=== PATIENT | male | born 1955 | race African-American/Black ===

== ENCOUNTER 2017-06-10 22:49 | Inpatient (IN) | payer MEDICARE, OTHER ==
[~2017-06-10] VITALS: Ht 177.8 cm; Wt 85.5 kg
--- NOTE | 2017-06-10 22:58 | NUR ---
Patient brought in by rescue, found crawling on the street, reports was kicked out of a board and care facility, had stroke 2 months ago, c/o worsening left sided weakness and headache.
--- NOTE | 2017-06-10 22:59 | NUR ---
Dr. Villela at bedside for MSE.
[2017-06-10] MEDS ORDERED: IV NORMAL SALINE 500 ML BAG IV ONE (23:00)
--- NOTE | 2017-06-10 23:02 | NUR ---
Patient out of ER for CT.
[2017-06-10] MEDS ORDERED: [UNRECOGNIZED DRUG - REMARK] (23:05)
[2017-06-10] MEDS ORDERED: [UNRECOGNIZED DRUG - REMARK] (23:05)
--- NOTE | 2017-06-10 23:18 | NUR ---
Patient back to ER from CT.
--- NOTE | 2017-06-10 23:35 | NUR ---
CALLED [facility] TELE STROKE. DR HERNANDEZ WILL CALL BACK
--- NOTE | 2017-06-10 23:40 | NUR ---
DR PADRON SPEAKING WITH DR NORRIS FROM [facility]
[2017-06-10 23:46] LABS: BASOPHILS # (AUTO) 0.1 K/uL (0.0-8.0); BASOPHILS % (AUTO) 0.5 % (0.0-2.0); EOSINOPHILS # (AUTO) 0.1 K/uL (0.0-0.7); EOSINOPHILS % (AUTO) 1.2 % (0.0-7.0); HEMATOCRIT 48.2 % (36.7-47.1); HEMOGLOBIN 15.3 g/dL (12.5-16.3); LYMPHOCYTES % (AUTO) 8.4 % (20.5-51.5); MEAN CORPUSCULAR HEMOGLOBIN 24.1 uug (23.8-33.4); MEAN CORPUSCULAR HGB CONC 32 g/dL (32.5-36.3); MEAN CORPUSCULAR VOLUME 75.7 fL (73.0-96.2); MONOCYTES # (AUTO) 0.7 K/uL (2.0-10.0); NEUTROPHILS # (AUTO) 9.9 K/uL (1.8-8.9); NEUTROPHILS % (AUTO) 83.9 % (38.5-71.5); PLATELET COUNT (AUTO) 246 K/uL (152-348); RED BLOOD CELL COUNT(AUTO) 6.36 MIL/uL (4.06-5.63); WHITE BLOOD COUNT (AUTO) 11.8 K/uL (3.6-10.2)
[2017-06-11] VITALS (7 sets, daily range): BP systolic 142–168; BP diastolic 85–104
[2017-06-11 00:11] LABS: ALANINE AMINOTRANSFERASE 80 U/L (16-63); ALKALINE PHOSPHATASE 89 U/L (50-136); ASPARTATE AMINOTRANSFERASE 64 U/L (15-37); BILIRUBIN,DIRECT 0.2 mg/dL (0.0-0.2); CARBON DIOXIDE 26 mmol/L (21-32); CHLORIDE 102 mmol/L (98-107); CREATININE 1.7 mg/dL (0.6-1.3); GLUCOSE 90 mg/dL (74-106); LIPASE 276 U/L (73-393); POTASSIUM 3.1 mmol/L (3.5-5.1); TOTAL PROTEIN, SERUM 9.6 g/dL (6.4-8.2); UREA NITROGEN, BLOOD 18 mg/dL (7-18)
[2017-06-11 00:18] LABS: ACETAMINOPHEN < 2.0 ug/mL (10-30)
[2017-06-11] MEDS ORDERED: FUROSEMIDE 20 MG/2 ML VIAL IV ONE ×2 (00:30→20:30)
[2017-06-11 00:31] LABS: ETHANOL < 3 MG/DL (0-0)
[2017-06-11] MEDS ORDERED: FUROSEMIDE 40 MG/4 ML VIAL ONE (00:31)
--- NOTE | 2017-06-11 01:16 | NUR ---
Passed report to Bonita RODRIGUEZ Tele.
--- NOTE | 2017-06-11 01:30 | NUR ---
ADMITTED PATIENT IN TELE UNIT UNDER THE CARE OF YARA TAYLOR NP, INVENTORY LIST DONE.
[2017-06-11] MEDS ORDERED: DEXTROSE 50% 50 ML DISP.SYRIN IV PRN ×3 (02:45→04:45)
[2017-06-11] MEDS ORDERED: INSULIN REGULAR, HUMAN 300 UNIT/3 ML VIAL SQ PRN ×3 (02:45→04:45)
[2017-06-11] MEDS ORDERED: BLOOD SUGAR DIAGNOSTIC 1 EACH STRIP VI SCH ×4 (06:00→07:30)
[2017-06-11] MEDS: BLOOD SUGAR DIAGNOSTIC 1 EACH STRIP VI SCH ×4 (06:03→20:51)
--- NOTE | 2017-06-11 06:16 | NUR ---
PATIENT SLEPT MOST OF THE NIGHT NO SOB NO CHEST PAIN, RYTHM AFIB ON 80 BUT NOT SUSTAINABLE, NO COMPLAIN OF PAIN, TURN AND REPOSITION EVERY TWO HOURS, V/S STABLE. CONT TO MONITOR.
[2017-06-11 06:22] LABS: BASOPHILS % (AUTO) 0.4 % (0.0-2.0); EOSINOPHILS # (AUTO) 0.2 K/uL (0.0-0.7); HEMATOCRIT 43.9 % (36.7-47.1); HEMOGLOBIN 14.1 g/dL (12.5-16.3); LYMPHOCYTES # (AUTO) 1.2 K/uL (20.0-40.0); LYMPHOCYTES % (AUTO) 12.2 % (20.5-51.5); MEAN CORPUSCULAR HEMOGLOBIN 24.1 uug (23.8-33.4); MEAN CORPUSCULAR HGB CONC 32 g/dL (32.5-36.3); MEAN CORPUSCULAR VOLUME 75.1 fL (73.0-96.2); MONOCYTES % (AUTO) 10.2 % (0.0-11.0); NEUTROPHILS # (AUTO) 7.3 K/uL (1.8-8.9); NEUTROPHILS % (AUTO) 75.2 % (38.5-71.5); PLATELET COUNT (AUTO) 209 K/uL (152-348); RED BLOOD CELL COUNT(AUTO) 5.85 MIL/uL (4.06-5.63); WHITE BLOOD COUNT (AUTO) 9.8 K/uL (3.6-10.2)
[2017-06-11 06:39] LABS: CREATININE 1.5 mg/dL (0.6-1.3); POTASSIUM 3.2 mmol/L (3.5-5.1)
[2017-06-11 06:49] LABS: BILIRUBIN,TOTAL 0.9 mg/dL (0.2-1.0); TOTAL PROTEIN, SERUM 7.4 g/dL (6.4-8.2)
[2017-06-11 06:51] LABS: THYROID STIMULATING HORMONE 0.249 mIU/mL (0.358-3.740)
--- NOTE | 2017-06-11 07:30 | NUR ---
RECEIVED SHIFT REPORT FROM COMPUTER OPERATIONS SPECIALIST NURSE. PATIENT A/OX4, PRESENTS WITH LEFT SIDED-WEAKNESS AND DIAGNOSIS OF STROKE. STABLE CONDITION AT THIS TIME, NO S/S OF DISTRESS. STROKE ASSESSMENT, STROKE PACKET WILL BE COMPLETED THROUGHOUT SHIFT. WILL MONITOR CLOSELY. PATIENT'S TROPONIN LEVEL SLIGHTLY ELEVATED FROM FIRST TROPONIN LEVEL WHICH WAS TAKEN DURING ADMISSION. BNP ALSO HIGHLY ELEVATED. WILL REMIND MD OF THESE RESULTS. NON-AMBULATORY AT THIS TIME, BED ALARM ON, CALL LIGHT WITHIN REACH OF PATIENT.
--- NOTE | 2017-06-11 08:00 | NUR ---
PATIENT WENT FROM BED TO CHAIR SAFELY TO HAVE BREAKFAST. HEART ELEVATED 108 ON TELE MONITOR. BLOOD PRESSURE SLIGHTLY ELEVATED AT 142/91, TEMPERATURE 98.3, O2 SATURATION 100%. WILL CONTINUE TO MONITOR.
--- NOTE | 2017-06-11 09:30 | NUR ---
PERSONAL BELONGINGS RECHECKED - PATIENT HAS $81 PETERSON, MARIJUANA ALSO FOUND IN PATIENT'S CLOTHES. MARIJUANA PLACED IN CONTRABAND LOCKER #4. PATIENT'S PETERSON AND MARIJUANA ADDED INTO BELONGINGS CHECKLIST FORM.
[2017-06-11] MEDS ORDERED: ATOR10TA PO (09:45)
[2017-06-11] MEDS ORDERED: LISI-603 PO (09:45)
--- NOTE | 2017-06-11 09:48 | NUR ---
MD ORDERED URINE DRUG SCREEN. UA ALSO NEEDS TO BE SENT, WAITING FOR URINE.
--- NOTE | 2017-06-11 09:52 | NUR ---
NOTES READ AND SAYS TO HOLD ASPIRIN FOR NOW.
--- NOTE | 2017-06-11 11:32 | NUR ---
WOUND CARE CONSULT: PT PRESENTS WITH LEFT LATERAL LOWER LEG DRY ESCHAR AND LEFT LATERAL HIP DEEP TISSUE INJURY WITH AREAS OF DRY ESCHAR, DRY ESCHAR TO LEFT ARM, DRY ABRASIONS TO ELBOWS AND ANTERIOR LOWER LEG, PRESENT ON ADMISSION. PT AMBULATORY WITH WALKER AND ASSISTANCE. LEFT SIDED WEAKNESS NOTED. ALL WOUND AND SKIN PROTECTION RECOMMENDATIONS DISCUSSED WITH NURSING STAFF. CURRENT FLACO SCORE IS 16. WILL SEE PRN. FORTUNE IN AGREEMENT WITH PLAN OF CARE. Addendum: 06/11/17 at 1135 by NAVIN KEVIN RN Amended: Links added.
--- NOTE | 2017-06-11 12:03 | NUR ---
PATIENT HAS BEEN RESTING COMFORTABLY IN BED SINCE BREAKFAST. NO NEUROLOGICAL CHANGES NOTED. FACIAL REPRESENTATION DOES PRESENT SLIGHT WEAKNESS ON LEFT CHEEK/MOUTH AREA, WHICH HAS BEEN PRESENT SINCE ADMISSION AND IS PATIENT'S BASELINE, BASED ON ASSESSMENT AND QUESTIONING PATIENT. TEMPERATURE SLIGHTLY ELEVATED AT 100.1, COOLING MEASURES PROVIDED, WILL RECHECK TEMPERATURE AND MONITOR. BLOOD SUGAR 84, NO INSULIN COVERAGE REQUIRED. STABLE CONDITION AT THIS TIME, NO S/S OF DISTRESS.
[2017-06-11] MEDS ORDERED: POTASSIUM CHLORIDE 20 MEQ TAB.PRT.SR PO ONE (13:15)
[2017-06-11] MEDS ORDERED: AMLODIPINE 5 MG TABLET PO SCH (13:15)
[2017-06-11] MEDS ORDERED: POTASSIUM CHLORIDE 10 MEQ TAB.PRT.SR PO ONE (13:15)
[2017-06-11] MEDS ORDERED: hydrALAZINE HCL 25 MG TABLET PO PRN (13:30)
[2017-06-11 14:27] LABS: *BILIRUBIN,URIN 1+ (NEGATIVE); *BLOOD, URINE Trace-intact (NEGATIVE); *CLARITY,URINE CLOUDY (CLEAR); *COLOR,URINE YELLOW (YELLOW); *KETONES,URINE NEGATIVE (NEGATIVE); *PROTEIN,URINE 2+ (NEGATIVE); LEUKOCYTE ESTERASE ,URINE 1+ (NEGATIVE); NITRITE, URINE NEGATIVE (NEGATIVE); PH,URINE 7.5 (5.0-8.0); UGLUCOSE NEGATIVE (NEGATIVE)
[2017-06-11 14:42] LABS: BACTERIA,URINE MANY /HPF (NONE SEEN); RBC,URINE 0-3 /HPF (0-3); SQUAMOUS EPITHELIAL CELL,UR FEW /HPF (NONE SEEN); WBC,URINE TNTC /HPF (0-3)
[2017-06-11 14:43] LABS: TRIPLE PHOSPHATE CRYSTAL,UR MANY /HPF (NONE SEEN)
[2017-06-11 14:49] LABS: *AMPHETAMINE, URINE NEGATIVE (NEGATIVE); *BARBITURATE, URINE NEGATIVE (NEGATIVE); *CANNABINOID, URINE POSITIVE (NEGATIVE); *COCCAINE, URINE POSITIVE (NEGATIVE); *OPIATE, URINE NEGATIVE (NEGATIVE); *PHENCYCLIDINE SCREEN,URINE NEGATIVE (NEGATIVE)
--- NOTE | 2017-06-11 15:12 | NUR ---
PATIENT GOING FOR MRI BRAIN W/OUT CONTRAST AT [facility]. AMBULANCE WILL BE TRANSPORTING PATIENT. BLOOD PRESSURE ELEVATED, PRN BLOOD PRESSURE MEDICATION ADMINISTERED.
--- NOTE | 2017-06-11 16:57 | NUR ---
UNABLE TO OBTAIN BLOOD SUGAR BECAUSE PATIENT HAVING MRI BRAIN DONE AT [facility].
--- NOTE | 2017-06-11 17:30 | NUR ---
PATIENT ARRIVED BACK INTO UNIT FROM MRI HEAD W/OUT CONTRAST FROM [facility]. PATIENT IN STABLE CONDITION.
--- NOTE | 2017-06-11 17:45 | NUR ---
VITAL SIGNS TAKEN AFTER ARRIVAL OF PATIENT FROM MRI BRAIN: BLOOD PRESSURE ELEVATED 168/104. TEMPERATURE WNL HEART RATE 104 ON TELE MONITOR NOTIFIED.
[2017-06-11] MEDS: HYDROCODONE/APAP 5-325MG TABLET PO PRN ×2 (17:56→23:46)
[2017-06-11] MEDS: CARVEDILOL 6.25 MG TABLET PO SCH (19:26)
--- NOTE | 2017-06-11 19:26 | NUR ---
COREG 6.25MG ADMINISTERED TO PATIENT FOR ELEVATED BLOOD PRESSURE.
[2017-06-11] MEDS: SIMVASTATIN 40 MG TABLET PO SCH (20:48)
[2017-06-11] MEDS: CEFTRIAXONE 1 G in IV DEXTROSE 5% 50 ML IV SCH (21:04)
[2017-06-12] VITALS: BP 166/111
[2017-06-12] MEDS: hydrALAZINE HCL 25 MG TABLET PO PRN (00:23)
[2017-06-12 01:23] VITALS: BP 149/99
[2017-06-12 04:00] VITALS: BP 141/91
[2017-06-12] MEDS: HYDROCODONE/APAP 5-325MG TABLET PO PRN ×4 (04:42→20:03)
--- NOTE | 2017-06-12 05:31 | NUR ---
Pt slept intermittently last night. Continues to complain of constant low back pain. MD Notified. PRN [place] changed to Q4H. Continuing to monitor BP with PRN Hydralazine administered once at midnight.
[2017-06-12] MEDS: BLOOD SUGAR DIAGNOSTIC 1 EACH STRIP VI SCH ×4 (06:33→20:17)
[2017-06-12 06:51] LABS: BASOPHILS % (AUTO) 0.7 % (0.0-2.0); EOSINOPHILS # (AUTO) 0.1 K/uL (0.0-0.7); EOSINOPHILS % (AUTO) 2.5 % (0.0-7.0); HEMATOCRIT 41.9 % (36.7-47.1); HEMOGLOBIN 13.5 g/dL (12.5-16.3); LYMPHOCYTES # (AUTO) 0.6 K/uL (20.0-40.0); LYMPHOCYTES % (AUTO) 10.8 % (20.5-51.5); MEAN CORPUSCULAR HEMOGLOBIN 24.3 uug (23.8-33.4); MEAN CORPUSCULAR HGB CONC 32 g/dL (32.5-36.3); MEAN CORPUSCULAR VOLUME 75.4 fL (73.0-96.2); MONOCYTES # (AUTO) 0.8 K/uL (2.0-10.0); MONOCYTES % (AUTO) 13.1 % (0.0-11.0); NEUTROPHILS # (AUTO) 4.2 K/uL (1.8-8.9); NEUTROPHILS % (AUTO) 72.9 % (38.5-71.5); PLATELET COUNT (AUTO) 197 K/uL (152-348); RED BLOOD CELL COUNT(AUTO) 5.56 MIL/uL (4.06-5.63); WHITE BLOOD COUNT (AUTO) 5.7 K/uL (3.6-10.2)
[2017-06-12 07:24] LABS: THYROID STIMULATING HORMONE 0.144 mIU/mL (0.358-3.740)
--- NOTE | 2017-06-12 07:24 | NUR ---
RECEIVED SHIFT REPORT FROM PAYROLL SECRETARY NURSE. PATIENT RESTING COMFORTABLY IN BED AT THIS TIME. BLOOD SUGAR CHECKED LAST NIGHT AND NO COVERAGE NEEDED. STABLE CONDITION AT THIS TIME. BLOOD PRESSURE ELEVATED, WILL MONITOR. CONTROLLED AFIB ON TELE MONITOR. STROKE ASSESSMENTS/EVALUATION WILL BE COMPLETED. NO NEUROLOGICAL CHANGES AT THIS TIME. BED ALARM ON, CALL LIGHT WITHIN REACH.
[2017-06-12 07:26] LABS: CREATININE 1.4 mg/dL (0.6-1.3); MAGNESIUM 1.8 mg/dL (1.8-2.4); PHOSPHOROUS 2.9 mg/dL (2.5-4.9); POTASSIUM 3.6 mmol/L (3.5-5.1)
[2017-06-12 08:03] VITALS: BP 124/81
[2017-06-12] MEDS: CARVEDILOL 6.25 MG TABLET PO SCH ×2 (08:07→17:49)
[2017-06-12 11:50] VITALS: BP 121/67
--- NOTE | 2017-06-12 14:52 | NUR ---
PHYSICAL THERAPY SEEN PATIENT. PATIENT VERBALIZES THAT HE FEELS DIZZY AND WEAK. BLOOD PRESSURE 145/73.
[2017-06-12 15:44] VITALS: BP 145/73
--- NOTE | 2017-06-12 18:48 | NUR ---
PATIENT RESTING COMFORTABLY IN BED AT THIS TIME. NO NEUROLOGICAL CHANGES/DEFICITS AT THIS TIME. STROKE EDUCATION PROVIDED. TEACH-BACK. BLOOD SUGAR MANAGEMENT PROVIDED. BLOOD PRESSURE CONTROL PROVIDED. BED ALARM IS ON, CALL LIGHT WITHIN REACH.
[2017-06-12] MEDS ORDERED: MIRALAX 17 GM POWD.PACK PO PRN (19:00)
--- NOTE | 2017-06-12 20:00 | NUR ---
PATIENT ALERT,SPEECH CLEAR,CONTROLLED A FIB ON MONITOR,STROKE REASSESSMENT DONE,NO NEUROLOGICAL CHANGED,STROKE EDUCATION GIVEN,PATIENT VERBALIZED UNDERSTANDING,NORCO 5-325 MG PO GIVEN FOR LEFT KNEE PAIN,EFFECTIVE.
[2017-06-12] MEDS: DOCUSATE SODIUM 100 MG CAPSULE PO SCH (20:02)
[2017-06-12] MEDS: SIMVASTATIN 40 MG TABLET PO SCH (20:03)
[2017-06-12] MEDS: CEFTRIAXONE 1 G in IV DEXTROSE 5% 50 ML IV SCH (20:09)
[2017-06-13] VITALS: BP 158/86
[2017-06-13] MEDS: HYDROCODONE/APAP 5-325MG TABLET PO PRN ×5 (00:06→20:58)
[2017-06-13] MEDS: hydrALAZINE HCL 25 MG TABLET PO PRN ×2 (00:07→08:25)
[2017-06-13 04:50] VITALS: BP 130/72
--- NOTE | 2017-06-13 06:00 | NUR ---
PATIENT NEUROLOGICAL CHECK REMAINS STABLE,NO ACUTE CHANGE ,PATIENT STATED SLEEP WELL THROUGH THE NIGHT, APRESOLINE GIVEN X1 TIMES FOR ELEVATED BP.
[2017-06-13] MEDS: BLOOD SUGAR DIAGNOSTIC 1 EACH STRIP VI SCH (06:25)
--- NOTE | 2017-06-13 07:15 | NUR ---
RECEIVED REPORT FROM 911 TELECOMMUNICATOR NURSE, PATIENT IN BED AWAKE, REPORTING PAIN IN LEG AND BACK. PATIENT NEEDED HELP REPOSITIONING. BED IN LOW POSITION, SIDE RAILS UP X2, BED ALARM ON. INFORMED PATIENT TO CALL BEFORE HE TRIES TO GET UP IN ORDER TO EVALUATE HIS AMBULATING SKILLS.
[2017-06-13] MEDS: CARVEDILOL 6.25 MG TABLET PO SCH ×2 (08:24→17:42)
[2017-06-13 11:40] VITALS: BP 132/63
[2017-06-13 15:40] VITALS: BP 158/95
[2017-06-13] MEDS: CEPHALEXIN MONOHYDRATE 500 MG CAPSULE PO SCH ×2 (16:18→20:30)
[2017-06-13] MEDS ORDERED: CEPH500C2 PO (16:59)
[2017-06-13] MEDS ORDERED: DOCU100C36 PO (16:59)
[2017-06-13] MEDS ORDERED: HYDR-4076 PO (16:59)
[2017-06-13] MEDS ORDERED: CARV6.252 PO (16:59)
[2017-06-13] MEDS ORDERED: MULT1TAB73 PO (16:59)
[2017-06-13] MEDS ORDERED: HYDR-3326 PO (16:59)
[2017-06-13] MEDS ORDERED: POLY17PO4 PO (16:59)
[2017-06-13] MEDS ORDERED: SIMV40TA5 PO (16:59)
[2017-06-13] MEDS ORDERED: LOSARTAN POTASSIUM 25 MG TABLET PO SCH (17:30)
--- NOTE | 2017-06-13 18:49 | NUR ---
PATIENT IS CURRENTLY IN BED AWAKE, NO DISTRESS NOTED AT THIS TIME, BED IN LOW POSITION, SIDE RAILS UP X2. PATIENT HAS BEEN COOPERATIVE WITH CARE, ALL NEEDS MET. PATIENT WILL BE DISCHARGING TO [facility].
[2017-06-13 20:00] VITALS: BP 146/71
--- NOTE | 2017-06-13 20:00 | NUR ---
RECEIVED PATIENT AWAKE IN BED. RECEIVED ORDERED FOR PATIENT TO BE DISCHARGED TO ACUTE REHAB ON 1ST FLOOR. PATIENT IS A/O X4. C/O MILD PAIN, GENERALIZED. VS WNL. NO RESP. DISTRESS NOTED. BED ALARM ON. ALL NEEDS ATTENDED. WILL CONTINUE TO MONITOR AND ASSESS.
[2017-06-13] MEDS: DOCUSATE SODIUM 100 MG CAPSULE PO SCH (20:30)
[2017-06-13] MEDS: SIMVASTATIN 40 MG TABLET PO SCH (20:30)
--- NOTE | 2017-06-13 21:00 | NUR ---
PATIENT GIVEN ALL ROUTINE MEDICATIONS AND NORCO PRN FOR PAIN. PATIENT REQUESTED FOR BLOOD SUGAR TO BE CHECKED PRIOR TO DISCHARGE. BS 125. WNL. PATIENT DISCHARGE INSTRUCTIONS GIVEN AND PATIENT VERBALIZED UNDERSTANDING. ALL NEEDS ATTENDED.
--- NOTE | 2017-06-13 21:25 | NUR ---
REPORT GIVEN TO RN IN ACUTE REHAB.
--- NOTE | 2017-06-13 21:35 | NUR ---
PATIENT DISCHARGED TO ACUTE REHAB IN STABLE CONDITION. TAKEN DOWN IN W/C. ALL NEEDS ATTENDED.
== END 2017-06-13 21:35 | DRG 64 ==
LOC: ER 22:49 → TELE 23:30
PROVIDERS: ADMIT Internal Medicine; ATTEND Internal Medicine
DX: I61.9 Nontraumatic intracerebral hemorrhage, unspecified (principal); N17.0 Acute kidney failure with tubular necrosis; I21.A1 Myocardial infarction type 2; I50.23 Acute on chronic systolic (congestive) heart failure; G93.6 Cerebral edema; G81.94 Hemiplegia, unspecified affecting left nondominant side; D68.59 Other primary thrombophilia; I42.9 Cardiomyopathy, unspecified; N39.0 Urinary tract infection, site not specified; J98.11 Atelectasis; I48.91 Unspecified atrial fibrillation; I11.0 Hypertensive heart disease with heart failure; I67.89 Other cerebrovascular disease; B96.4 Proteus (mirabilis) (morganii) as the cause of diseases classified elsewhere; F12.10 Cannabis abuse, uncomplicated; F14.10 Cocaine abuse, uncomplicated; E78.5 Hyperlipidemia, unspecified; E05.90 Thyrotoxicosis, unspecified without thyrotoxic crisis or storm; Z59.0 Homelessness; E87.6 Hypokalemia; F17.210 Nicotine dependence, cigarettes, uncomplicated; F10.11 Alcohol abuse, in remission
CPT/HCPCS: 36415; 70030-TC; 70450; 70551; 71045; 80307; 83550; 83605; 83690; 83735; 84100; 84443; 85025; 85651; 85730; 87040; 87077; 87086; 92526; 92610; 93005; 93307; 97110; 97112; 97116; 97165; 97530; 97535; A4663; G0480; G0480-TC; J0696; J1815; J1940; J7040; J7060

== ENCOUNTER 2017-06-13 10:05 | Inpatient (IN) | payer MEDICARE, OTHER ==
[~2017-06-13] VITALS: Ht 177.8 cm; Wt 99.8 kg
[~2017-06-13 10:05] MED LIST: ATOR10TA PO; LISI-603 PO
[2017-06-13] MEDS ORDERED: MULT1TAB73 PO (16:59)
[2017-06-13] MEDS ORDERED: CEPH500C2 PO (16:59)
[2017-06-13] MEDS ORDERED: SIMV40TA5 PO (16:59)
[2017-06-13] MEDS ORDERED: CARV6.252 PO (16:59)
[2017-06-13] MEDS ORDERED: DOCU100C36 PO (16:59)
[2017-06-13] MEDS ORDERED: POLY17PO4 PO (16:59)
[2017-06-13] MEDS ORDERED: HYDR-4076 PO (16:59)
[2017-06-13] MEDS ORDERED: HYDR-3326 PO (16:59)
--- NOTE | 2017-06-13 23:00 | NUR ---
Pt arrived in unit at 2140 via wheelchair from 2nd floor tele, accompanied by RN and MAIL CARRIER TECHNICIAN. Pt is AAO x4. No acute distress noted. No c/o pain or discomfort. Vital signs stable. On room air. Pertinent assessments done. Multiple abrasions on left side of the body, pictures taken. Personal belongings listed and in chart. Oriented pt to unit and equipment. Safety measures maintained. Call light and personal belongings within reach. Will continue to monitor.
[2017-06-14] MEDS ORDERED: Z GUARD REMEDY PASTE 57 GM TUBE TOP PRN (01:00)
[2017-06-14 01:08] VITALS: BP 138/75
--- NOTE | 2017-06-14 05:20 | NUR ---
Pt slept comfortably in bed. All needs attended to promptly. Pt uses urinal. Will endorse to day shift RN. Continue to monitor.
[2017-06-14 08:00] VITALS: BP 154/70
--- NOTE | 2017-06-14 08:15 | NUR ---
Received patient awake, alert x4. Not in any distress. With tolerable pain over left lower extremity. Up with occupational therapy for evaluation.
[2017-06-14] MEDS ORDERED: MIRALAX 17 GM POWD.PACK PO PRN (11:30)
[2017-06-14] MEDS: CEPHALEXIN MONOHYDRATE 500 MG CAPSULE PO SCH ×2 (12:10→20:31)
[2017-06-14] MEDS: HYDROCODONE/APAP 5-325MG TABLET PO PRN ×2 (12:11→18:01)
[2017-06-14] MEDS: hydrALAZINE HCL 25 MG TABLET PO SCH ×2 (12:12→20:31)
--- NOTE | 2017-06-14 12:35 | NUR ---
Pain over left lower extremity rated as 7/10. PRN [place] given
--- NOTE | 2017-06-14 15:03 | NUR ---
One roll of marijuana form patient found and informed patient we have to dispose of it or family has to take it home. Patient said to dispose of it. Informed cardroom supervisor and pharmacy. Altaf from pharmacy informed and marijuana disposed Rx disposal bin.
[2017-06-14] MEDS: CARVEDILOL 6.25 MG TABLET PO SCH (18:00)
--- NOTE | 2017-06-14 18:00 | NUR ---
Complained of pain over left arm and shoulder. Rated pain as 9/10. PRN [place] given.
[2017-06-14 19:30] VITALS: BP 133/92
--- NOTE | 2017-06-14 19:40 | NUR ---
Received pt in bed, AAO watching television. Verbally responsive and able to make needs known. No acute distress noted. Denies pain or discomfort at this time. All safety measures and fall precautions maintained. Call light and all personal belongings within reach. Will continue to monitor.
[2017-06-14] MEDS: DOCUSATE SODIUM 100 MG CAPSULE PO SCH (20:30)
[2017-06-14] MEDS: SIMVASTATIN 40 MG TABLET PO SCH (20:31)
[2017-06-15] MEDS: HYDROCODONE/APAP 5-325MG TABLET PO PRN ×4 (00:01→22:01)
--- NOTE | 2017-06-15 07:30 | NUR ---
Received pt in bed, AXOX4 Verbally responsive and able to make needs known. No acute distress noted. Denies pain or discomfort at this time. All safety measures and fall precautions maintained. . Will continue to monitor.
[2017-06-15] MEDS: CEPHALEXIN MONOHYDRATE 500 MG CAPSULE PO SCH ×2 (08:06→20:36)
[2017-06-15] MEDS: MULTIVITAMINS,THERAPEUTIC TABLET PO SCH (08:06)
[2017-06-15] MEDS: hydrALAZINE HCL 25 MG TABLET PO SCH ×2 (08:06→20:36)
[2017-06-15] MEDS: CARVEDILOL 6.25 MG TABLET PO SCH ×2 (08:07→17:01)
[2017-06-15 08:16] VITALS: BP 139/85
[2017-06-15] MEDS ORDERED: Medication Not On Formulary EA (Multivitamins (Multivitamin) 1 TAB) PO SCH (09:00)
--- NOTE | 2017-06-15 19:30 | NUR ---
PT ALERT AND ORIENTED IN BED. NO DISTRESS NOTED. ALL NEEDS MET AT THIS TIME. SAFETY MAINTAINED. CALL LIGHT WITHIN REACH. BED ALARM ON. WILL CONTINUE TO MONITOR.
[2017-06-15 20:00] VITALS: BP 152/82
[2017-06-15] MEDS: DOCUSATE SODIUM 100 MG CAPSULE PO SCH (20:36)
[2017-06-15] MEDS: SIMVASTATIN 40 MG TABLET PO SCH (20:36)
[2017-06-16] MEDS: HYDROCODONE/APAP 5-325MG TABLET PO PRN ×3 (05:39→17:25)
--- NOTE | 2017-06-16 06:34 | NUR ---
PT SLEPT COMFORTABLY THROUGHOUT THE NIGHT. PAIN MEDICATION GIVEN ORDERED. OFFERED TO ALIGN PT IN BED, PT STATED " IT FEELS BETTER TO LEAVE MY LEG HANGING OVER THE SIDE", EDUCATED PT ON THE RISKS OF FALLING, PT INSISTING ON LEAVING HIS LEG DANGLING TO THE SIDE. NO DISTRESS NOTED. SAFETY MAINTAINED. CALL LIGHT WITHIN REACH. BED ALARM ON.
[2017-06-16 07:23] LABS: EOSINOPHILS # (AUTO) 0.3 K/uL (0.0-0.7); EOSINOPHILS % (AUTO) 6.6 % (0.0-7.0); HEMATOCRIT 38.2 % (36.7-47.1); HEMOGLOBIN 12.5 g/dL (12.5-16.3); LYMPHOCYTES # (AUTO) 1.6 K/uL (20.0-40.0); LYMPHOCYTES % (AUTO) 37.1 % (20.5-51.5); MEAN CORPUSCULAR HEMOGLOBIN 24.3 uug (23.8-33.4); MEAN CORPUSCULAR HGB CONC 33 g/dL (32.5-36.3); MEAN CORPUSCULAR VOLUME 74.3 fL (73.0-96.2); MONOCYTES # (AUTO) 0.6 K/uL (2.0-10.0); MONOCYTES % (AUTO) 14.5 % (0.0-11.0); NEUTROPHILS # (AUTO) 1.8 K/uL (1.8-8.9); NEUTROPHILS % (AUTO) 40.8 % (38.5-71.5); PLATELET COUNT (AUTO) 227 K/uL (152-348); RED BLOOD CELL COUNT(AUTO) 5.14 MIL/uL (4.06-5.63); WHITE BLOOD COUNT (AUTO) 4.3 K/uL (3.6-10.2)
[2017-06-16 07:30] VITALS: BP 156/82
[2017-06-16 07:42] LABS: POTASSIUM 3.9 mmol/L (3.5-5.1)
[2017-06-16 07:43] LABS: CREATININE 1.3 mg/dL (0.6-1.3); PHOSPHOROUS 3.2 mg/dL (2.5-4.9)
[2017-06-16] MEDS: MULTIVITAMINS,THERAPEUTIC TABLET PO SCH (09:12)
[2017-06-16] MEDS: CEPHALEXIN MONOHYDRATE 500 MG CAPSULE PO SCH ×2 (09:12→21:20)
[2017-06-16] MEDS: CARVEDILOL 6.25 MG TABLET PO SCH ×2 (09:12→17:24)
[2017-06-16] MEDS: AMLODIPINE 5 MG TABLET PO SCH (09:13)
[2017-06-16] MEDS: hydrALAZINE HCL 25 MG TABLET PO SCH ×2 (09:13→21:20)
[2017-06-16 17:34] VITALS: BP 157/94
--- NOTE | 2017-06-16 19:30 | NUR ---
Received pt in bed, AAO x 3 watching television. No acute distress noted. Verbally responsive and able to make needs known. Denies pain or discomfort at this time. All safety measures and fall precautions maintained. Call light and all personal belongings within reach. Will continue to monitor.
[2017-06-16 19:45] VITALS: BP 148/102
[2017-06-16] MEDS: DOCUSATE SODIUM 100 MG CAPSULE PO SCH (21:18)
[2017-06-16] MEDS: SIMVASTATIN 40 MG TABLET PO SCH (21:20)
[2017-06-17] MEDS: HYDROCODONE/APAP 5-325MG TABLET PO PRN ×3 (00:14→21:04)
[2017-06-17] MEDS: MULTIVITAMINS,THERAPEUTIC TABLET PO SCH (08:58)
[2017-06-17] MEDS: CEPHALEXIN MONOHYDRATE 500 MG CAPSULE PO SCH ×2 (08:58→21:01)
[2017-06-17] MEDS: AMLODIPINE 5 MG TABLET PO SCH (09:04)
[2017-06-17] MEDS: hydrALAZINE HCL 25 MG TABLET PO SCH ×2 (09:05→21:02)
[2017-06-17] MEDS: CARVEDILOL 6.25 MG TABLET PO SCH ×2 (09:05→19:06)
--- NOTE | 2017-06-17 14:40 | NUR ---
WOUND CARE CONSULT: PT PRESENTS WITH MULTIPLE DRY ESCHARS AND DRY ABRASIONS WELL UNSTAGEABLE WOUND TO LEFT HIP, PRESENT ON ADMISSION. RECOMMENDATIONS MADE FOR SKIN PROTECTION AND WOUND CARE. DISCUSSED WITH NURSING STAFF. RECOMMEND SURGICAL CONSULT FOR LEFT HIP WOUND. CURRENT FLACO SCORE IS 20. WOULD NOT RECOMMEND LOW AIRLOSS OVERLAY DUE TO FACT THAT PT GETS OUT OF BED AND MOVES ABOUT FREQUENTLY. ALL SKIN PROTECTION MEASURES IN PLACE. WILL SEE PRN. FORTUNE IN AGREEMENT WITH PLAN OF CARE. Addendum: 06/17/17 at 1442 by NAVIN KEVIN RN Amended: Links added.
[2017-06-17 19:30] VITALS: BP 122/80
--- NOTE | 2017-06-17 19:35 | NUR ---
Received patient in bed, alert, awake and verbally responsive. Vital signs taken and recorded. No signs of any acute respiratory distress. Breathing even and nonlabored. Complaining of pain on lower back 10/25. Pertinent assessment done. Safety measures provided. Call light in reach. will monitor the patient.
[2017-06-17] MEDS: DOCUSATE SODIUM 100 MG CAPSULE PO SCH (21:00)
[2017-06-17] MEDS: SIMVASTATIN 40 MG TABLET PO SCH (21:01)
[2017-06-18] MEDS: HYDROCODONE/APAP 5-325MG TABLET PO PRN ×3 (03:12→19:36)
[2017-06-18 08:00] VITALS: BP 143/91
--- NOTE | 2017-06-18 08:00 | NUR ---
Received patient alert, verbally responsive, not in any form of acute distress. He denies any pain or discomfort. Call light placed within reach. Reminded to use call light for assistance with verbalized understanding. Assisted to his needs.
[2017-06-18 08:07] LABS: VIT D, 25-HYDROXY 22.9 ng/mL (30.0-100.0)
[2017-06-18] MEDS: CEPHALEXIN MONOHYDRATE 500 MG CAPSULE PO SCH ×2 (08:40→21:21)
[2017-06-18] MEDS: MULTIVITAMINS,THERAPEUTIC TABLET PO SCH (08:40)
[2017-06-18] MEDS: AMLODIPINE 5 MG TABLET PO SCH (08:42)
[2017-06-18] MEDS: CARVEDILOL 6.25 MG TABLET PO SCH ×2 (08:45→17:31)
[2017-06-18] MEDS: hydrALAZINE HCL 25 MG TABLET PO SCH ×2 (08:45→21:21)
--- NOTE | 2017-06-18 19:45 | NUR ---
Received patient in bed, awake, alert and verbally responsive.Vital signs taken and recorded. No acute distress. No SOB. Safety measures provided. All needs attended to promptly. Call light within reach. Will continue to monitor.
[2017-06-18 20:53] VITALS: BP 141/86
[2017-06-18 20:58] VITALS: BP 141/86
[2017-06-18] MEDS: DOCUSATE SODIUM 100 MG CAPSULE PO SCH (21:00)
[2017-06-18] MEDS: SIMVASTATIN 40 MG TABLET PO SCH (21:20)
[2017-06-19] MEDS: HYDROCODONE/APAP 5-325MG TABLET PO PRN ×4 (00:57→21:03)
[2017-06-19] MEDS: hydrALAZINE HCL 25 MG TABLET PO SCH ×2 (08:25→20:32)
[2017-06-19] MEDS: MULTIVITAMINS,THERAPEUTIC TABLET PO SCH (08:25)
[2017-06-19] MEDS: CEPHALEXIN MONOHYDRATE 500 MG CAPSULE PO SCH (08:25)
[2017-06-19] MEDS: AMLODIPINE 5 MG TABLET PO SCH (08:25)
[2017-06-19] MEDS: CARVEDILOL 6.25 MG TABLET PO SCH ×2 (08:25→17:25)
[2017-06-19] MEDS: CHOLECALCIFEROL 1,000 UNIT TABLET PO SCH (08:29)
--- NOTE | 2017-06-19 08:45 | NUR ---
Received patient, awake, alert x4. Not in any distress. With pain over left arm rated as 7/10. PRN [place] given. Call light within reach. Encouraged to call for needs.
[2017-06-19 10:11] LABS: CALCITRIOL VIT D,1,25 DIHYDROX 16.7 pg/mL (19.9-79.3)
--- NOTE | 2017-06-19 14:05 | NUR ---
Wound care done as ordered over left hip. NS pat dry, hydrogel and covered with Mepilex.
--- NOTE | 2017-06-19 14:05 | NUR ---
Wound healing well, no discharges no s/s of infection noted.
--- NOTE | 2017-06-19 15:28 | NUR ---
Pain rated as 7/10 over left leg. PRN [place] given.
--- NOTE | 2017-06-19 20:30 | NUR ---
Received pt on bed alert, awake and oriented. Pleasant, calm and cooperative to care. No apparent distress noted. Denies pain at this time. No SOB noted. Safety and fall precautions observed and maintained. Encouraged to verbalize needs and concerns. Call light within reach. All needs attended.
[2017-06-19] MEDS: SIMVASTATIN 40 MG TABLET PO SCH (20:32)
[2017-06-19] MEDS: DOCUSATE SODIUM 100 MG CAPSULE PO SCH (20:32)
[2017-06-19 20:38] VITALS: BP 103/64
--- NOTE | 2017-06-19 21:17 | NUR ---
Complained of left leg pain, PRN norco given. BP medication held, BP 103/64. Pt also refused colace, states that he doesn't need it. Explained risks and benefits, pt daryn refuses.
[2017-06-20] MEDS: HYDROCODONE/APAP 5-325MG TABLET PO PRN ×4 (04:39→22:53)
--- NOTE | 2017-06-20 05:55 | NUR ---
Patient slept comfortably throughout the shift with no acute distress noted. Still complaining of 7/10 left leg pain, medicated with norco PRN. No SOB noted. Frequently checked for safety. Side rails up x2. Bed locked and in lowest position. Call light within reach. All needs attended.
--- NOTE | 2017-06-20 08:15 | NUR ---
Received patient awake, alert x4. Not in any form of distress. With pain over left arms, pain medications not due at this time. Call light within reach. Encouraged to call for needs. Ensured comfort and safety.
[2017-06-20] MEDS: hydrALAZINE HCL 25 MG TABLET PO SCH ×2 (08:31→21:01)
[2017-06-20] MEDS: CHOLECALCIFEROL 1,000 UNIT TABLET PO SCH (08:32)
[2017-06-20] MEDS: AMLODIPINE 5 MG TABLET PO SCH (08:32)
[2017-06-20] MEDS: CARVEDILOL 6.25 MG TABLET PO SCH ×2 (08:32→17:17)
[2017-06-20] MEDS: MULTIVITAMINS,THERAPEUTIC TABLET PO SCH (08:32)
[2017-06-20 09:57] VITALS: BP 124/83
--- NOTE | 2017-06-20 11:02 | NUR ---
Pain rated as 8/10 over left arm. PRN pain medication given.
--- NOTE | 2017-06-20 11:12 | NUR ---
Still with minimal left sided neglect and weakness. Wound over right hip, healing well no discharges. NS pat dry, hydrogel and covered with Mepilex.
--- NOTE | 2017-06-20 17:13 | NUR ---
Low back pain rated as 8/10. PRN [place] given
--- NOTE | 2017-06-20 19:35 | NUR ---
Received patient in bed, awake and verbally responsive. Vital signs taken and recorded. No sob, or acute distress noted. Complaining of lower back pain 10/25, explained to patient I can't give any ([place]) pain med as of the moment because the last he took it was 171 and it is Q6H PRN. Provided non pharmacologic interventions, offered ice pack and repositioned the patient. Safety measures provided. Bed placed in low position. Bed alarm on. Call light within reach. will continue to monitor patient.
[2017-06-20 20:04] VITALS: BP 146/60
[2017-06-20] MEDS: DOCUSATE SODIUM 100 MG CAPSULE PO SCH (21:00)
[2017-06-20] MEDS: SIMVASTATIN 40 MG TABLET PO SCH (21:00)
[2017-06-21] MEDS: MULTIVITAMINS,THERAPEUTIC TABLET PO SCH (08:12)
[2017-06-21] MEDS: CARVEDILOL 6.25 MG TABLET PO SCH ×2 (08:14→17:11)
[2017-06-21] MEDS: HYDROCODONE/APAP 5-325MG TABLET PO PRN ×2 (08:14→17:11)
[2017-06-21] MEDS: CHOLECALCIFEROL 1,000 UNIT TABLET PO SCH (08:14)
[2017-06-21] MEDS: AMLODIPINE 5 MG TABLET PO SCH (08:15)
[2017-06-21] MEDS: hydrALAZINE HCL 25 MG TABLET PO SCH ×2 (09:17→20:24)
[2017-06-21 10:56] VITALS: BP 137/98
--- NOTE | 2017-06-21 18:31 | NUR ---
END OF SHIFT NOTES: PATIENT ALERT AND ORIENTED X 4, ABLE TO MAKE NEEDS KNOWN. ALL NEEDS WERE ATTENDED AND ANTICIPATED. ALL MEDICATIONS WERE GIVEN, ALL WERE TOLERATED WELL. PAIN MEDICATIONS WERE GIVEN ORDERED NEEDED. WOUND CARE TREATMENT DONE, TOLERATED WELL. NO SIGNS AND SYMPTOMS OF INFECTION, REMAINED AFEBRILE. HOURLY ROUNDING DONE. REMAINED STABLE THROUGHOUT THE SHIFT WITH NO ACUTE CHANGES. WILL CONTINUE TO MONITOR. WILL ENDORSE TO INCOMING SHIFT.
--- NOTE | 2017-06-21 20:00 | NUR ---
Received pt lying on bed alert, awake and oriented x3. Able to make needs known. No apparent distress noted. No complaints of pain or discomfort. Vital signs stable. Pt refused colace, explained risks and benefits but still pt refused. Call light within reach. Side rails up x2. Encouraged to call for assistance if needed. All needs attended.
[2017-06-21 20:23] VITALS: BP 141/68
[2017-06-21] MEDS: SIMVASTATIN 40 MG TABLET PO SCH (20:24)
[2017-06-21] MEDS: DOCUSATE SODIUM 100 MG CAPSULE PO SCH (20:25)
[2017-06-22] MEDS: HYDROCODONE/APAP 5-325MG TABLET PO PRN ×4 (00:10→20:35)
--- NOTE | 2017-06-22 05:52 | NUR ---
Pt slept intermittently throughout the night. Complained of left leg pain, norco PRN given. Kept clean, dry and comfortable. Call light within reach. All needs met.
--- NOTE | 2017-06-22 07:20 | NUR ---
RECEIVED REPORT FROM GANG MINER NURSE, PATIENT IN BED AWAKE, NO EVIDENCE OF DISTRESS NOTED, BED IN LOW POSITION, SIDE RAILS UP X2, CALL LIGHT IN REACH.
[2017-06-22] MEDS: CARVEDILOL 6.25 MG TABLET PO SCH ×2 (08:00→17:32)
[2017-06-22 08:31] VITALS: BP_SYST 130; BP_SYST 97; BP_DIAS 54; BP_DIAS 70
[2017-06-22] MEDS: MULTIVITAMINS,THERAPEUTIC TABLET PO SCH (09:36)
[2017-06-22] MEDS: CHOLECALCIFEROL 1,000 UNIT TABLET PO SCH (09:36)
[2017-06-22] MEDS: hydrALAZINE HCL 25 MG TABLET PO SCH ×2 (09:36→20:35)
[2017-06-22] MEDS: AMLODIPINE 5 MG TABLET PO SCH (09:36)
--- NOTE | 2017-06-22 18:50 | NUR ---
PATIENT HAS BEEN COOPERATIVE WITH CARE. PATIENT HAS HAD BREAKTHROUGH PAIN THROUGHOUT THE DAY, BUT VITALS REMAIN STABLE, AND NO GRIMACING OR GUARDING NOTED. CURRENTLY PATIENT IN BED AWAKE, WATCHING TV. BED IN LOW POSITION, SIDE RAILS UP X2. ALL NEEDS MET.
[2017-06-22 19:30] VITALS: BP 133/73
--- NOTE | 2017-06-22 19:47 | NUR ---
Received pt sitting comfortably in bed, alert and awake with no apparent distress noted. Complained of left leg pain, norco PRN will be given. No SOB noted. Safety and fall precautions observed and maintained. Encouraged to verbalize needs and concerns. Call light placed within reach. All needs attended.
[2017-06-22] MEDS: DOCUSATE SODIUM 100 MG CAPSULE PO SCH (20:34)
[2017-06-22] MEDS: SIMVASTATIN 40 MG TABLET PO SCH (20:35)
[2017-06-23] MEDS: HYDROCODONE/APAP 5-325MG TABLET PO PRN ×4 (03:46→18:10)
[2017-06-23 08:33] VITALS: BP 160/85
[2017-06-23] MEDS: CHOLECALCIFEROL 1,000 UNIT TABLET PO SCH (09:48)
[2017-06-23] MEDS: MULTIVITAMINS,THERAPEUTIC TABLET PO SCH (09:48)
[2017-06-23] MEDS: CARVEDILOL 6.25 MG TABLET PO SCH ×2 (09:49→18:12)
[2017-06-23] MEDS: hydrALAZINE HCL 25 MG TABLET PO SCH ×2 (09:49→20:43)
[2017-06-23] MEDS: AMLODIPINE 5 MG TABLET PO SCH (09:49)
[2017-06-23] MEDS: LISINOPRIL 10 MG TABLET PO SCH (12:45)
[2017-06-23 19:30] VITALS: BP 148/73
--- NOTE | 2017-06-23 19:35 | NUR ---
Received pt up in bed, AAO x3 watching television. No acute distress noted. Verbally responsive and able to make needs known. Denies pain or discomfort at this time. All safety measures and fall precautions maintained. Call light and all personal belongings within reach. Will continue to monitor.
[2017-06-23] MEDS: DOCUSATE SODIUM 100 MG CAPSULE PO SCH (20:42)
[2017-06-23] MEDS: SIMVASTATIN 40 MG TABLET PO SCH (20:42)
[2017-06-24] MEDS: HYDROCODONE/APAP 5-325MG TABLET PO PRN ×5 (03:28→23:30)
[2017-06-24 08:02] VITALS: BP 156/108
[2017-06-24] MEDS: CHOLECALCIFEROL 1,000 UNIT TABLET PO SCH (08:05)
[2017-06-24] MEDS: CARVEDILOL 6.25 MG TABLET PO SCH ×2 (08:05→18:17)
[2017-06-24] MEDS: MULTIVITAMINS,THERAPEUTIC TABLET PO SCH (08:05)
[2017-06-24] MEDS: AMLODIPINE 5 MG TABLET PO SCH (08:05)
[2017-06-24] MEDS: hydrALAZINE HCL 25 MG TABLET PO SCH ×2 (08:06→21:42)
[2017-06-24] MEDS: LISINOPRIL 10 MG TABLET PO SCH (08:06)
--- NOTE | 2017-06-24 19:30 | NUR ---
Patient in bed, awake, alert and was watching TV. Patient is A/O x3. Vital signs taken and recorded. No sob, or acute distress noted. Complaining of lower back pain 09/24, explained to patient I can't give any ([place]) pain med since it is not yet due. Provided non pharmacologic interventions, offered ice pack and repositioned the patient. Safety measures provided. Bed placed in low position. Bed alarm on. Call light within reach. will continue to monitor patient.
[2017-06-24] MEDS: DOCUSATE SODIUM 100 MG CAPSULE PO SCH (21:00)
[2017-06-24 21:08] VITALS: BP 144/80
--- NOTE | 2017-06-24 21:15 | NUR ---
Room transfer done, from Rm 105 to Rm 101B. Patient is stable and not in respi. distress. Will continue to monitor the patient. Patient refused Colace saying he doesn't need for tonight. Explained the risks/benefits and offered 3x but still patient declined.
[2017-06-24] MEDS: SIMVASTATIN 40 MG TABLET PO SCH (21:41)
[2017-06-25] MEDS: HYDROCODONE/APAP 5-325MG TABLET PO PRN ×3 (07:04→19:15)
[2017-06-25] MEDS: CARVEDILOL 6.25 MG TABLET PO SCH ×2 (08:14→17:18)
[2017-06-25] MEDS: AMLODIPINE 5 MG TABLET PO SCH (08:14)
[2017-06-25] MEDS: MULTIVITAMINS,THERAPEUTIC TABLET PO SCH (08:14)
[2017-06-25] MEDS: LISINOPRIL 10 MG TABLET PO SCH (08:14)
[2017-06-25] MEDS: CHOLECALCIFEROL 1,000 UNIT TABLET PO SCH (08:14)
[2017-06-25] MEDS: hydrALAZINE HCL 25 MG TABLET PO SCH ×2 (08:15→20:57)
[2017-06-25 08:18] VITALS: BP 141/81
--- NOTE | 2017-06-25 18:47 | NUR ---
NO CHANGES NOTED THROUGHOUT SHIFT, WORKED WITH PT, SBP REMAINED IN 140'S. CALL LIGHT IN REACH
--- NOTE | 2017-06-25 19:35 | NUR ---
Patient in bed, awake and verbally responsive. Vital signs taken and recorded. No sob, or acute distress noted. Complaining of lower back pain 10/25, PRN [place] given per patient's request. Patient requested for additional food saying he is still hungry after eating his dinner. Inform patient I can give some sandwiches, juice and some crackers, he said he is okay with it. Will provide patient's request. Safety measures provided. Bed placed in low position. Bed alarm on. Call light within reach. will continue to monitor patient.
[2017-06-25 20:12] VITALS: BP 117/58
[2017-06-25] MEDS: SIMVASTATIN 40 MG TABLET PO SCH (20:45)
[2017-06-25] MEDS: DOCUSATE SODIUM 100 MG CAPSULE PO SCH (20:57)
[2017-06-26] MEDS: HYDROCODONE/APAP 5-325MG TABLET PO PRN ×4 (00:43→17:17)
[2017-06-26 07:30] VITALS: BP 131/73
[2017-06-26] MEDS: CHOLECALCIFEROL 1,000 UNIT TABLET PO SCH (08:32)
[2017-06-26] MEDS: MULTIVITAMINS,THERAPEUTIC TABLET PO SCH (08:32)
[2017-06-26] MEDS: AMLODIPINE 5 MG TABLET PO SCH (08:33)
[2017-06-26] MEDS: hydrALAZINE HCL 25 MG TABLET PO SCH ×2 (08:34→20:34)
[2017-06-26] MEDS: LISINOPRIL 10 MG TABLET PO SCH (08:36)
[2017-06-26] MEDS: CARVEDILOL 6.25 MG TABLET PO SCH ×2 (08:36→17:14)
--- NOTE | 2017-06-26 19:30 | NUR ---
Received patient in bed. Alert and verbally responsive. Able to make needs known. Denies any pain and discomfort. No acute distress. No SOB. Kept clean and dry. All needs attended to promptly. Call light within reach. Will continue to monitor.
[2017-06-26] MEDS: DOCUSATE SODIUM 100 MG CAPSULE PO SCH (20:34)
[2017-06-26] MEDS: SIMVASTATIN 40 MG TABLET PO SCH (20:35)
[2017-06-26 20:38] VITALS: BP 123/77
[2017-06-27] MEDS: HYDROCODONE/APAP 5-325MG TABLET PO PRN ×3 (02:31→17:33)
--- NOTE | 2017-06-27 06:59 | NUR ---
Patient slept comfortably throughout the night. No c/o pain and discomfort. Pain medication given as needed. No acute distress. No SOB. Kept clean and dry. All needs attended to promptly. Call light within reach. Will continue to monitor.
[2017-06-27 07:30] VITALS: BP 157/90
[2017-06-27] MEDS: MULTIVITAMINS,THERAPEUTIC TABLET PO SCH (08:44)
[2017-06-27] MEDS: LISINOPRIL 20 MG TABLET PO SCH (08:45)
[2017-06-27] MEDS: AMLODIPINE 5 MG TABLET PO SCH (08:45)
[2017-06-27] MEDS: CHOLECALCIFEROL 1,000 UNIT TABLET PO SCH (08:46)
[2017-06-27] MEDS: hydrALAZINE HCL 25 MG TABLET PO SCH ×2 (08:46→20:14)
[2017-06-27] MEDS: CARVEDILOL 6.25 MG TABLET PO SCH ×2 (08:46→17:32)
[2017-06-27] MEDS ORDERED: LISINOPRIL 10 MG TABLET PO SCH (09:00)
--- NOTE | 2017-06-27 09:00 | NUR ---
Received awake in bed , alert/oriented x 3, able to make needs known, ambulates with PT in am , tolerated well, no distress noted. VS taken, BP 157/90, all BP meds given. Will continue to monitor for safety and needs.
--- NOTE | 2017-06-27 16:19 | NUR ---
Patient c/o left leg and back pain at 12/25, norco 5-325mg was given at 1001, reassessed in an hour, effective. Ambulates with PT to the gym x2, ate 100% breakfast and lunch, medication compliant and cooperative. Will continue to monitor for safety and needs.
--- NOTE | 2017-06-27 18:55 | NUR ---
Patient c/o left leg and lower back pain at 11/25, norco 5-325mg PO was given at 1733, reassessed in an hour, pain 05/25.
[2017-06-27 19:30] VITALS: BP 142/69
[2017-06-27] MEDS: SIMVASTATIN 40 MG TABLET PO SCH (20:14)
[2017-06-27] MEDS: DOCUSATE SODIUM 100 MG CAPSULE PO SCH (20:16)
[2017-06-28] MEDS: HYDROCODONE/APAP 5-325MG TABLET PO PRN ×3 (02:10→13:48)
--- NOTE | 2017-06-28 07:00 | NUR ---
Patient slept comfortably throughout the night. No c/o pain and discomfort. Pain medication given as needed. No acute distress. No SOB. Dressing on Left forearm and left leg abrasion. Kept clean and dry. All needs attended to promptly. Call light within reach. Will continue to monitor
[2017-06-28 07:45] LABS: BASOPHILS # (AUTO) 0.1 K/uL (0.0-8.0); BASOPHILS % (AUTO) 1.6 % (0.0-2.0); EOSINOPHILS # (AUTO) 0.1 K/uL (0.0-0.7); EOSINOPHILS % (AUTO) 4.4 % (0.0-7.0); HEMATOCRIT 39.9 % (36.7-47.1); HEMOGLOBIN 12.8 g/dL (12.5-16.3); LYMPHOCYTES # (AUTO) 1.1 K/uL (20.0-40.0); LYMPHOCYTES % (AUTO) 36.6 % (20.5-51.5); MEAN CORPUSCULAR HEMOGLOBIN 23.8 uug (23.8-33.4); MEAN CORPUSCULAR HGB CONC 32 g/dL (32.5-36.3); MEAN CORPUSCULAR VOLUME 74.5 fL (73.0-96.2); MONOCYTES # (AUTO) 0.5 K/uL (2.0-10.0); MONOCYTES % (AUTO) 17.2 % (0.0-11.0); NEUTROPHILS # (AUTO) 1.2 K/uL (1.8-8.9); NEUTROPHILS % (AUTO) 40.2 % (38.5-71.5); PLATELET COUNT (AUTO) 214 K/uL (152-348); RED BLOOD CELL COUNT(AUTO) 5.35 MIL/uL (4.06-5.63); WHITE BLOOD COUNT (AUTO) 3.1 K/uL (3.6-10.2)
[2017-06-28 08:00] VITALS: BP 125/58
[2017-06-28] MEDS: CARVEDILOL 6.25 MG TABLET PO SCH ×2 (08:00→17:18)
[2017-06-28 08:10] LABS: CREATININE 1.3 mg/dL (0.6-1.3)
[2017-06-28] MEDS: AMLODIPINE 5 MG TABLET PO SCH (08:26)
[2017-06-28] MEDS: MULTIVITAMINS,THERAPEUTIC TABLET PO SCH (08:27)
[2017-06-28] MEDS: hydrALAZINE HCL 25 MG TABLET PO SCH ×2 (08:27→08:31)
[2017-06-28] MEDS: CHOLECALCIFEROL 1,000 UNIT TABLET PO SCH (08:28)
[2017-06-28 08:29] VITALS: BP 125/58
[2017-06-28] MEDS: LISINOPRIL 20 MG TABLET PO SCH (08:29)
[2017-06-28 08:40] LABS: EOSINOPHILS % (MANUAL) 6 % (0-8); LYMPHOCYTES % (MANUAL) 37 % (20-40); MONOCYTES % (MANUAL) 13 % (2-10); NEUTROPHILS % (MANUAL) 39 % (42-75)
--- NOTE | 2017-06-28 16:41 | NUR ---
PATIENT WILL BE DISCHARGE TO [facility] AROUND 630PM. DISCHARGE ORDERED WRITTEN. WOUND PICTURES TAKEN. PATIENT DISEASE PROCESS EDUCATION AND INSTRUCTION GIVEN.
== END 2017-06-28 19:30 | DRG 56 ==
PROVIDERS: ADMIT Physical Medicine & Rehabilitation Pain Medicine; ATTEND Physical Medicine & Rehabilitation Pain Medicine
DX: I69.154 Hemiplegia and hemiparesis following nontraumatic intracerebral hemorrhage affecting left non-dominant side (principal); G93.40 Encephalopathy, unspecified; I21.A1 Myocardial infarction type 2; I42.9 Cardiomyopathy, unspecified; D68.59 Other primary thrombophilia; I13.0 Hypertensive heart and chronic kidney disease with heart failure and stage 1 through stage 4 chronic kidney disease, or unspecified chronic kidney disease; I50.42 Chronic combined systolic (congestive) and diastolic (congestive) heart failure; N39.0 Urinary tract infection, site not specified; J98.11 Atelectasis; I48.91 Unspecified atrial fibrillation; N18.9 Chronic kidney disease, unspecified; B96.4 Proteus (mirabilis) (morganii) as the cause of diseases classified elsewhere; E78.5 Hyperlipidemia, unspecified; Z87.891 Personal history of nicotine dependence; E05.90 Thyrotoxicosis, unspecified without thyrotoxic crisis or storm; F12.10 Cannabis abuse, uncomplicated; F14.10 Cocaine abuse, uncomplicated; R29.6 Repeated falls; Z79.01 Long term (current) use of anticoagulants; R26.9 Unspecified abnormalities of gait and mobility; F10.11 Alcohol abuse, in remission; Y90.9 Presence of alcohol in blood, level not specified; Z59.0 Homelessness
CPT/HCPCS: 36415; 70030-TC; 82306; 82652; 83735; 83970; 84100; 85025; 92523; 97110; 97112; 97116; 97530; 97535; A4663

== ENCOUNTER 2017-07-10 10:47 | Outpatient (CLI) | payer MEDICARE, OTHER ==
[~2017-07-10 10:47] MED LIST changes: -ATOR10TA PO; +CARV6.252 PO; +CEPH500C2 PO; +DOCU100C36 PO; +HYDR-3326 PO; +HYDR-4076 PO; -LISI-603 PO; +MULT1TAB73 PO; +POLY17PO4 PO; +SIMV40TA5 PO
== END 2017-07-10 23:59 | disposition home or self-care (01) ==
LOC: RAD 10:47
PROVIDERS: ATTEND Internal Medicine
DX: I63.9 Cerebral infarction, unspecified (principal); I67.2 Cerebral atherosclerosis; I11.0 Hypertensive heart disease with heart failure; I50.42 Chronic combined systolic (congestive) and diastolic (congestive) heart failure; I48.0 Paroxysmal atrial fibrillation; I69.154 Hemiplegia and hemiparesis following nontraumatic intracerebral hemorrhage affecting left non-dominant side; M62.81 Muscle weakness (generalized); R26.89 Other abnormalities of gait and mobility; R41.841 Cognitive communication deficit; E78.5 Hyperlipidemia, unspecified
CPT/HCPCS: 70450